=== PATIENT | male | born 1970 | race African-American/Black ===

== ENCOUNTER → 2018-06-11 | Outpatient (CLI) | payer OTHER ==
--- NOTE | 2018-06-11 10:08 | RAD ---
Abdominal ultrasound, 06/11/2018: HISTORY: Right upper quadrant pain The gallbladder is within normal limits in size. There is no sonographic evidence of cholelithiasis. The gallbladder richard are not thickened. The common hepatic duct is of normal caliber. The hepatic echogenicity is generally increased, most commonly due to fatty change. The liver measures 19.2 cm in craniocaudad extent at the level of the right lobe. No hepatic mass is seen. The spleen is of normal size. The visualized portions of both kidneys are unremarkable. The pancreatic body shows no abnormality. Other portions of the pancreas were obscured by overlying bowel. The aorta and inferior vena cava are unremarkable. No free fluid is evident in the abdomen. IMPRESSION: 1. Hepatomegaly with increased hepatic echogenicity suggesting hepatic steatosis. 2. No other significant abdominal abnormality is detected. Electronically signed by: Avery Crook MD (06/11/2018 10:03 AM) [facility]
== END | disposition home or self-care (01) ==
LOC: US 07:53
PROVIDERS: ATTEND Nurse Practitioner Gerontology
DX: R16.0 Hepatomegaly, not elsewhere classified (principal)
CPT/HCPCS: 76700